=== PATIENT | female | born 1990 | race Caucasian/White ===

== ENCOUNTER 2020-04-04 08:38 | Outpatient (REF) | payer OTHER, SELFPAY ==
[2020-04-04 12:41] LABS: Influenza A PCR NEGATIVE (Negative); Influenza B PCR NEGATIVE (Negative); Resp Syncy Virus RNA Qual PCR NEGATIVE (Negative); SARS COV2 PCR INHOUSE NEGATIVE (Negative)
== END 2020-04-04 08:39 | disposition home or self-care (01) ==
LOC: HO.LAB 08:38
PROVIDERS: Visit Provider Nurse Practitioner Family
DX: R06.89 Other abnormalities of breathing (principal)
CPT/HCPCS: 0241U

== ENCOUNTER 2020-05-10 09:09 | Outpatient (REF) | payer OTHER, SELFPAY | END 2020-05-10 09:10 | disposition home or self-care (01) | LOC: HO.LAB 09:09 | PROVIDERS: Visit Provider Hospitalist | DX: J45.41 Moderate persistent asthma with (acute) exacerbation (principal); Z20.828 Contact with and (suspected) exposure to other viral communicable diseases | CPT/HCPCS: U0003 ==

== ENCOUNTER 2020-05-10 09:16 | Outpatient (REF) | payer OTHER, SELFPAY ==
[2020-05-10 10:28] LABS: MANUAL DIFF FLAG NO
[2020-05-10 10:31] LABS: Basophils Absolute Auto 0.1 X10*3/uL (0.0-0.2); Basophils Percent Auto 0.7 % (0-2); Eosinophils Absolute Auto 0.8 X10*3/uL (0.0-0.4); Eosinophils Percent Auto 8.3 % (0-4); Hematocrit 34.8 % (37-47); Hemoglobin 10.8 g/dl (12.0-16.0); Imm Gran Abs Auto 0.02 X10*3/uL (0.00-0.03); Imm Gran Pct Auto 0.2 % (0.0-0.4); Lymphocytes Absolute Auto 3.3 X10*3/uL (1.2-4.9); Lymphocytes Percent Auto 35.6 % (20-40); Mean Corpuscular Hemoglobin 26.9 pg (27.0-33.0); Mean Corpuscular Volume 86.8 fL (80-98); Monocytes Absolute Auto 0.7 X10*3/uL (0.1-1.2); Monocytes Percent Auto 7.1 % (2-11); Neutrophils Absolute Auto 4.4 X10*3/uL (2.0-8.3); Neutrophils Percent Auto 48.1 % (45-73); Platelet Count 372 X10*3/uL (160-400); Red Blood Count 4.01 X10*6/uL (4.20-5.50); Red Cell Distribution Width 13.6 % (11.0-16.0); White Blood Count 9.2 X10*3/uL (4.8-10.8)
== END 2020-05-10 09:17 | disposition home or self-care (01) ==
LOC: HO.WFDLDS 09:16
PROVIDERS: Visit Provider Hospitalist
DX: J45.41 Moderate persistent asthma with (acute) exacerbation (principal); R79.89 Other specified abnormal findings of blood chemistry
CPT/HCPCS: 36415; 85025

== ENCOUNTER → 2020-06-22 14:07 | Outpatient (BNVA) | payer OTHER, SELFPAY | PROVIDERS: PCP Internal Medicine; Visit Provider Internal Medicine Pulmonary Disease | DX: G47.33 Obstructive sleep apnea (adult) (pediatric) (principal); J45.909 Unspecified asthma, uncomplicated; Z91.09 Other allergy status, other than to drugs and biological substances | CPT/HCPCS: 99202 ==

== ENCOUNTER 2020-08-22 12:53 | Outpatient (REF) | payer OTHER, SELFPAY ==
--- NOTE | 2020-08-22 14:00 | PFT_ITS ---
INDICATION: Asthma. SPIROMETRY: The FEV1 to FVC of 56% with an FEV1 of 1.83 L, which is 56% predicted, and an FVC of 3.29 L, which is 87% predicted. There was a significant response to bronchodilators noted. Maximum voluntary ventilation 61% predicted. LUNG VOLUMES: Total lung capacity 110% predicted with a residual volume of 201% predicted. The patient also has an expiratory reserve volume of 6% predicted. DIFFUSION CAPACITY: DLCO 64% predicted. COMPARISONS: None. INTERPRETATION: There is an obstructive ventilatory defect consistent with moderate to severe COPD. The patient did have a significant response to bronchodilators noted. In addition to that, there is a moderate decrease in maximum voluntary ventilation secondary to likely deconditioning, also worsening dynamic inspiratory capacity. Lung volumes with a trend of hyperinflation and significant air trapping due to the COPD. The patient also has a [id number] diffusion impairment secondary to emphysema and other parenchymal lung conditions should be considered. Clinical correlation warranted. MD CHELI Browne/MODL / [id number]
== END 2020-08-22 12:54 | disposition home or self-care (01) ==
LOC: HO.RESP 12:53
PROVIDERS: PCP Internal Medicine; Visit Provider Internal Medicine Pulmonary Disease
DX: J45.909 Unspecified asthma, uncomplicated (principal)
CPT/HCPCS: 94060; 94727; 94729

== ENCOUNTER 2020-09-05 13:46 | Outpatient (REF) | payer OTHER, SELFPAY ==
[2020-09-05 14:12] LABS: MANUAL DIFF FLAG NO
[2020-09-05 14:21] LABS: Basophils Percent Auto 0.4 % (0-2); Eosinophils Absolute Auto 0.4 X10*3/uL (0.0-0.4); Hematocrit 36.5 % (37-47); Hemoglobin 11.4 g/dl (12.0-16.0); Imm Gran Abs Auto 0.02 X10*3/uL (0.00-0.03); Imm Gran Pct Auto 0.2 % (0.0-0.4); Lymphocytes Percent Auto 32.9 % (20-40); Mean Corpuscular HGB Conc 31.2 g/dl (31.0-35.0); Mean Corpuscular Hemoglobin 25.9 pg (27.0-33.0); Mean Corpuscular Volume 82.8 fL (80-98); Mean Platelet Volume 9.7 fL (9.4-12.3); Monocytes Absolute Auto 0.6 X10*3/uL (0.1-1.2); Monocytes Percent Auto 6.6 % (2-11); Neutrophils Percent Auto 55.9 % (45-73); Platelet Count 329 X10*3/uL (160-400); Red Blood Count 4.41 X10*6/uL (4.20-5.50); Red Cell Distribution Width 15.9 % (11.0-16.0)
== END 2020-09-05 13:47 | disposition home or self-care (01) ==
LOC: HO.LAB 13:46
PROVIDERS: PCP Internal Medicine; Visit Provider Internal Medicine Pulmonary Disease
DX: Z91.09 Other allergy status, other than to drugs and biological substances (principal)
CPT/HCPCS: 36415; 82785; 85025; 86003

== ENCOUNTER → 2020-09-07 13:36 | Outpatient (BNVA) | payer OTHER, SELFPAY | PROVIDERS: PCP Internal Medicine; Visit Provider Internal Medicine Pulmonary Disease | DX: J45.909 Unspecified asthma, uncomplicated (principal); Z91.09 Other allergy status, other than to drugs and biological substances | CPT/HCPCS: 99212 ==

== ENCOUNTER → 2020-09-27 12:58 | Outpatient (BNVA) | payer OTHER, SELFPAY | PROVIDERS: PCP Internal Medicine; Visit Provider Surgery Vascular Surgery | DX: I83.11 Varicose veins of right lower extremity with inflammation (principal) | CPT/HCPCS: 99202 ==

== ENCOUNTER 2020-10-17 12:59 | Outpatient (REF) | payer OTHER, SELFPAY | END 2020-10-17 13:00 | disposition home or self-care (01) | LOC: HO.MDS 12:59 | PROVIDERS: PCP Internal Medicine; Visit Provider Internal Medicine Pulmonary Disease | DX: J45.50 Severe persistent asthma, uncomplicated (principal) | CPT/HCPCS: 96372; J0517 ==

== ENCOUNTER 2020-11-15 11:52 | Outpatient (REF) | payer OTHER, SELFPAY | END 2020-11-15 11:53 | disposition home or self-care (01) | LOC: HO.MDS 11:52 | PROVIDERS: Visit Provider Internal Medicine Pulmonary Disease | DX: J45.50 Severe persistent asthma, uncomplicated (principal) | CPT/HCPCS: 96372; J0517 ==

== ENCOUNTER → 2020-11-19 09:59 | Outpatient (REF) | payer OTHER, SELFPAY ==
--- NOTE | 2020-11-19 10:06 | ECG_ITS ---
Test Reason : CK QT PROLONGATION Blood Pressure : / mmHG Vent. Rate : 067 BPM Atrial Rate : 067 BPM P-R Int : 132 ms QRS Dur : 084 ms QT Int : 464 ms P-R-T Axes : 031 058 028 degrees QTc Int : 490 ms Normal sinus rhythm Prolonged QT Abnormal ECG When compared with ECG of 05-NOV-2017 21:30, QT has lengthened Referred By: Carli Cade Electronically Signed By:Kelvin Davila
== END ==
LOC: HO.CARD 09:59
PROVIDERS: PCP Internal Medicine; Visit Provider Family Medicine
DX: R94.31 Abnormal electrocardiogram [ECG] [EKG] (principal); Z79.891 Long term (current) use of opiate analgesic
CPT/HCPCS: 93005

== ENCOUNTER 2020-12-13 11:32 | Outpatient (REF) | payer OTHER, SELFPAY | END 2020-12-13 11:33 | disposition home or self-care (01) | LOC: HO.MDS 11:32 | PROVIDERS: PCP Internal Medicine; Visit Provider Internal Medicine Pulmonary Disease | DX: J45.50 Severe persistent asthma, uncomplicated (principal) | CPT/HCPCS: 96372; J0517 ==

== ENCOUNTER 2021-02-21 09:51 | Outpatient (REF) | payer OTHER, SELFPAY | END 2021-02-21 09:52 | disposition home or self-care (01) | LOC: HO.MDS 09:51 | PROVIDERS: PCP Internal Medicine; Visit Provider Internal Medicine Pulmonary Disease | DX: J45.50 Severe persistent asthma, uncomplicated (principal) | CPT/HCPCS: 96372; J0517 ==

== ENCOUNTER → 2021-03-14 08:18 | Outpatient (REF) | payer OTHER, SELFPAY ==
--- NOTE | 2021-03-14 08:27 | ECG_ITS ---
Test Reason : methadone qt prolongation Blood Pressure : / mmHG Vent. Rate : 056 BPM Atrial Rate : 056 BPM P-R Int : 128 ms QRS Dur : 088 ms QT Int : 498 ms P-R-T Axes : 043 066 035 degrees QTc Int : 480 ms Sinus bradycardia with sinus arrhythmia Nonspecific T wave abnormality RSR' or QR pattern in V1 suggests right ventricular conduction delay Abnormal ECG When compared with ECG of 19-NOV-2020 10:13, Heart rate has decreased T wave amplitude has decreased in Inferior leads Referred By: Cynthia Doyle Electronically Signed By:SHANTA MCDONALD MD
== END ==
LOC: HO.CARD 08:18
PROVIDERS: Visit Provider Family Medicine
DX: Z79.899 Other long term (current) drug therapy (principal)
CPT/HCPCS: 93005

== ENCOUNTER 2023-01-30 07:21 | Outpatient (AMB) | payer OTHER, SELFPAY ==
--- NOTE | 2023-01-30 07:26 | MHC.PC.OV ---
Vital Signs 01/30/23 07:27 Height 5 ft 4 in Weight 195 lb BMI 33.5 BP 104/68 Blood Pressure Location Lt brachial Position Sitting Pulse 67 Pulse Source Pulse Oximeter Pulse Oximetry (%) 94 Oxygen Delivery Method Room Air Intake Visit Reasons: f/u from urgent care, vomiting, chest pain Allergies aspirin [ASPIRIN] Allergy (Severe, Verified 01/30/23 07:27) ANAPHYLAXIS Tobacco use date assessed: 01/30/23 Dental Screening Dental Screen Date: 01/30/23 Did you have a dental visit in the last 12 months?: Yes Did you have a dental problem in the last 6 months where you did not have access to dental care?: No Was dental information given to patient?: Patient has dentist HPI HPI Comments History of Present Illness Details 32-year-old female past medical history significant for asthma, GERD, with disorder, hypertension, NIYA. Patient unknown when last seen. Patient presents today for follow up from urgent care, however she reports she never went to urgent care.States visits for vomiting since April, Patient was at the time and underwent an in august and the vomitting continued. Patient states went to ER in [place] 1 month ago was given promethazine and was recommended to have a EGD completed. Patient reports she will vomit like 15 times a day from 05:00 to 12:00. Patient states previous on omprezole 20 mg daily for GERD however she stopped taking this because her reflux went away. Denies CP, states feels like rock in epigastric area. Patient does report when she is not vomiting she does have occasional diarrhea. Denies any rectal bleed. Patient states she has had pancreatitis in the past and she is concerned over this. Labs ordered to further evaluate. Patient reports followed by [facility] methadone clinic and states she is on 115 mg daily. Denies any alcohol use admits to smoking marijuana however denies any other drug use. [facility] Medical History Pancreatitis Fractured coccyx Lumbar degenerative disc disease Hypertension GERD (gastroesophageal reflux disease) Tobacco abuse Polysubstance abuse Mood disorder Asthma Surgical History History of section History of wisdom tooth extraction Family History (Updated 01/30/23 @ 07:35 by Khalida Rebolledo CMA) Father DDD (degenerative disc disease) CVD (cardiovascular disease) Mother CVD (cardiovascular disease) Acute pancreatitis Paternal Aunt Ovarian cancer Paternal Grandfather Colostomy in place Acute Crohn's disease Other Mental health disorder Substance use disorder Social History Housing: Apartment Patient Tobacco Use Status: Current everyday Tobacco user Tobacco use type: Cigarette Cigarette Packs Per Day: 0.5 Cigarettes Per Day: 12 Years Smoked: 14 yrs e-Cigarette/Vaping Use: Never Used Second Hand Smoke Exposure: Yes Current occupational status: employed Cognitive needs: No Hearing needs: No Vision needs: No Questionnaire PHQ-9 Over the last 2 weeks, how often have you been bothered by any of the following problems? 1. Little interest or pleasure in doing things: more than half the days 2. Feeling down, depressed, or hopeless: more than half the days 3. Trouble falling or staying asleep, or sleeping too much: nearly every day 4. Feeling tired or having little energy: nearly every day 5. Poor appetite or overeating: nearly every day 6. Feeling bad about yourself - or that you are a failure or have let yourself or your family down: more than half the days 7. Trouble concentrating on things, such as reading the newspaper or watching television: several days 8. Moving or speaking so slowly that other people could have noticed. Or the opposite - being so fidgety or restless that you have been moving around a lot more than usual: not at all 9. Thoughts that you would be better off or of hurting yourself in some way: not at all Total score: 16 Depression Screening Interpretation: Positive Source: Developed by Drs. Blake Serrano, Carli Shipman, Dayne Reilly and colleagues, with an educational kisha from [employer]. Thrive Questionnaire Date Thrive assessed: 01/30/23 I am a: Patient What is your living situation today?: I have a steady place to live Within the past 12 months, did the food you bought not last and you didn't have the money to get more?: Never true Within the past 12 months, did you worry whether your food would run out before you got money to buy more?: Never true Do you have trouble paying for medicines?: No Do you have trouble getting transportation to medical appointments?: No Do you have trouble paying your heating and electricity bill?: No Do you have trouble taking care of your child, family member or friend?: No Do you have trouble with day-to-day activities such as bathing, preparing meals, shopping, managing finances, etc.?: No Are you currently unemployed and looking for a job?: No Are you interested in more education?: No Currently or been in a relationship where the following occur: no concerns reported AUDIT C Alcohol Use Questionnaire (AUDIT-C) 1. How often do you have a drink containing alcohol?: Never 3. How often do you have six or more drinks on one occasion?: Never Total Score: 0 DEEP-7 AMB Questionnaire DEEP-7 Date DEEP - 7 assessed: 01/30/23 Feeling nervous, anxious, or on edge: 2 = More than half the days Not being able to stop or control worryin = Several days Worrying too much about different things: 3 = Nearly every day Trouble relaxin = More than half the days Being so restless that it is hard to sit still: 0 = Not at all Becoming easily annoyed or irritable: 1 = Several days Feeling afraid as if something awful might happen: 0 = Not at all Total DEEP-7 score (0-4 normal; 5-9 mild; 10-14 moderate; 15-21 severe): 9 Source: Developed by Drs. Blake Serrano, Carli Shipman, Dayne Reilly and colleagues, with an educational kisha from [employer]. Review of Systems Const Denies chills, Denies fatigue, Denies fever(s) and Denies poor appetite Eyes Denies no additional complaints ENT Reports Normal hearing present Card Denies chest pain, Denies syncope, Denies rapid heart rate and Denies dyspnea Resp Denies cough and Denies dyspnea GI Reports abdominal pain (epigastric discomfort), Denies melena, Denies hematochezia, Denies change in stool character, Denies constipation, Denies diarrhea, Denies nausea and Denies vomiting Denies urinary frequency, Denies dysuria and Denies urinary urgency Neuro Reports Normal hearing present, Denies confusion and Denies syncope Psych Denies confusion Endo Denies fatigue Physical exam (Primary Care) Vital Signs: Last Vital Signs Pulse 67 01/30/23 07:27 BP 104/68 01/30/23 07:27 Pulse Ox 94 01/30/23 07:27 Oxygen Delivery Method Room Air 01/30/23 07:27 BMI result Body Mass Index 33.5 Tobacco/Smoking Status: Tobacco use Status Tobacco use date assessed 01/30/23 01/30/23 07:38 Patient Tobacco Use Status Current everyday Tobacco 01/30/23 07:38 Tobacco use type Cigarette 01/30/23 07:38 e-Cigarette/Vaping Use Never Used 01/30/23 07:38 PHQ-9: PHQ-9 Score PHQ-9: Total score 16 01/30/23 08:00 Depression Screening Interpretation: Positive Thrive Assessment: Date of Thrive Assessment Date Thrive assessed 01/30/23 01/30/23 07:34 Currently or been in a relationship where the following occur: no concerns reported Const General: No confusion Orientation/consciousness: No confusion HENMT Head: Yes normocephalic and Yes atraumatic Eyes Conjunctivae: conjunctivae normal Chest Chest palpation & inspection: normal inspection of the chest Resp Effort & Inspection: normal respiratory effort Auscultation: clear to auscultation bilaterally, no crackles, no rhonchi and no wheezes Cardio Rate: regular rate Rhythm: regular rhythm Heart sounds: S1 normal heart sound present and S2 normal heart sound present GI Inspection: Yes normal to inspection Palpation (GI): Soft to palpation, nontender and No hepatosplenomegaly present Auscultation: normoactive bowel sounds Neuro General: No confusion Cranial nerves: Yes Normal hearing present Extrem General: No edema Assessment and Plan Assessment & Plan (1) GERD (gastroesophageal reflux disease): Code(s): K21.9 - Gastro-esophageal reflux disease without esophagitis Qualifiers: Esophagitis presence: esophagitis presence not specified Qualified Code(s): K21.9 - Gastro-esophageal reflux disease without esophagitis Plan: Epigastric discomfort and daily vomiting likely related to uncontrolled GERD. Will start patient back on omeprazole 20 mg daily and Zofran 4 mg q.8 hours as needed for vomiting. Referral entered to GI given patient was recommended to get EGD done in the past to further evaluate. (2) Epigastric pain: Code(s): R10.13 - Epigastric pain (3) Vomiting: Code(s): R11.10 - Vomiting, unspecified Plan Follow-up in 3 months for physical exam or sooner if needed. Orders: Orders Complete Blood Count Auto Diff Today Z13.0 - Encounter for screening for diseases of the blood and blood-forming organs and certain disorders involving the immune mechanism Lipase Today R10.13 - Epigastric pain Comprehensive Met. Panel Today R10.13 - Epigastric pain, R11.10 - Vomiting, unspecified Amylase Today R10.13 - Epigastric pain Referrals Gastroenterology Referral K21.9 - Gastro-esophageal reflux disease without esophagitis, R10.13 - Epigastric pain, R11.10 - Vomiting, unspecified Medications: New omeprazole 20 mg PO DAILY 30 caps 1RF K21.9 - Gastro-esophageal reflux disease without esophagitis ondansetron 4 mg PO Q8H PRN 7 tabs 0RF nausea and vomiting R11.10 - Vomiting, unspecified Coding Level of Care Code Est Pt Level 3 (91614) Diagnoses Gastroesophageal reflux disease, unspecified whether esophagitis present K21.9 Esophagitis presence: esophagitis presence not specified Epigastric pain R10.13 Vomiting R11.10
[2023-01-30 07:27] VITALS: BP 104/68; PULSE 67; O2SAT 94; BMI 33.5
== END 2023-01-30 07:57 | disposition home or self-care (01) ==
PROVIDERS: PCP Internal Medicine; Visit Provider Nurse Practitioner Family
DX: K21.9 Gastro-esophageal reflux disease without esophagitis (principal); R10.13 Epigastric pain; R11.10 Vomiting, unspecified
CPT/HCPCS: 99213

== ENCOUNTER 2023-01-30 08:04 | Outpatient (REF) | payer OTHER, SELFPAY ==
[2023-01-30 08:20] LABS: MANUAL DIFF FLAG NO
[2023-01-30 09:09] LABS: Basophils Percent Auto 0.4 % (0-2); Eosinophils Absolute Auto 0.1 X10*3/uL (0.0-0.4); Eosinophils Percent Auto 1.5 % (0-4); Hematocrit 41.6 % (37.0-47.0); Hemoglobin 13.8 g/dl (12.0-16.0); Imm Gran Abs Auto 0.02 X10*3/uL (0.00-0.03); Imm Gran Pct Auto 0.3 % (0.0-0.4); Lymphocytes Absolute Auto 2.7 X10*3/uL (1.2-4.9); Lymphocytes Percent Auto 34.1 % (20-40); Mean Corpuscular HGB Conc 33.2 g/dl (31.0-35.0); Mean Corpuscular Hemoglobin 29.1 pg (27.0-33.0); Mean Corpuscular Volume 87.6 fL (80.0-98.0); Mean Platelet Volume 10.4 fL (9.4-12.3); Monocytes Absolute Auto 0.5 X10*3/uL (0.1-1.2); Monocytes Percent Auto 6.4 % (2-11); Neutrophils Absolute Auto 4.5 x10*3/uL (2.0-8.3); Neutrophils Percent Auto 57.3 % (45-73); Platelet Count 326 X10*3/uL (160-400); Red Blood Count 4.75 X10*6/uL (4.20-5.50); Red Cell Distribution Width 12.9 % (11.0-16.0); White Blood Count 7.8 X10*3/uL (4.8-10.8)
[2023-01-30 10:06] LABS: Alanine Aminotransferase 21 U/L (0-31); Albumin Level 3.8 g/dL (3.5-5.0); Alkaline Phosphatase 64 U/L (39-117); Amylase 33 U/L (28-100); Anion Gap 12 (12-20); Aspartate Amino Transferase 19 U/L (5-31); Bilirubin Total 0.3 mg/dL (0.0-1.0); Blood Urea Nitrogen 10 mg/dL (9-16); Calcium 9.2 mg/dL (8.4-10.2); Carbon Dioxide 28 mmol/L (22-29); Chloride 101 mmol/L (96-108); Estimated Glomerular Filt Rate > 60; Glucose Random 93 mg/dL (60-115); Lipase 17 U/L (8-78); Potassium 3.8 mmol/L (3.3-5.1); Sodium 137 mmol/L (135-145); Total Protein 7.2 g/dL (6.5-8.0)
== END 2023-01-30 08:05 | disposition home or self-care (01) ==
LOC: HO.LAB 08:04
PROVIDERS: PCP Nurse Practitioner Family; Visit Provider Nurse Practitioner Family
DX: R10.13 Epigastric pain (principal); R11.10 Vomiting, unspecified; Z13.0 Encounter for screening for diseases of the blood and blood-forming organs and certain disorders involving the immune mechanism
CPT/HCPCS: 36415; 80053; 82150; 83690; 85025

== ENCOUNTER 2023-02-23 10:28 | Outpatient (REF) | payer OTHER, SELFPAY ==
[2023-02-23 12:09] LABS: Hematocrit 39.7 % (37.0-47.0); Hemoglobin 13.2 g/dl (12.0-16.0); Mean Corpuscular HGB Conc 33.2 g/dl (31.0-35.0); Mean Corpuscular Hemoglobin 29.1 pg (27.0-33.0); Mean Corpuscular Volume 87.4 fL (80.0-98.0); Mean Platelet Volume 10.6 fL (9.4-12.3); Platelet Count 271 X10*3/uL (160-400); Red Blood Count 4.54 X10*6/uL (4.20-5.50); Red Cell Distribution Width 12.7 % (11.0-16.0); White Blood Count 8.9 X10*3/uL (4.8-10.8)
[2023-02-23 13:18] LABS: Alanine Aminotransferase 15 U/L (0-31); Albumin Level 4.1 g/dL (3.5-5.0); Alkaline Phosphatase 67 U/L (39-117); Anion Gap 14 (12-20); Aspartate Amino Transferase 16 U/L (5-31); Bilirubin Total 0.5 mg/dL (0.0-1.0); Blood Urea Nitrogen 6 mg/dL (9-16); Calcium 9.4 mg/dL (8.4-10.2); Carbon Dioxide 25 mmol/L (22-29); Chloride 103 mmol/L (96-108); Estimated Glomerular Filt Rate > 60; Glucose Random 95 mg/dL (60-115); Lipase 65 U/L (8-78); Potassium 3.7 mmol/L (3.3-5.1); Sodium 138 mmol/L (135-145); Total Protein 7.2 g/dL (6.5-8.0)
[2023-02-23 13:23] LABS: UPreg QC Valid YES; Urine Pregnancy NEGATIVE (NEGATIVE)
[2023-02-24 07:32] LABS: HBS Num1 0.32 mIU/mL (0-7.99); HBc Num1 0.06 S/CO (0.00-0.79); Hepatitis B Core Antibody Nonreactive (Nonreactive); ~HepC Num1 0.11 S/CO (0.00-0.79); ~Hepatitis B Surface Antibody NONREACTIVE (Nonreactive); ~Hepatitis C Antibody Nonreactive (Nonreactive)
[2023-02-24 07:33] LABS: Hepatitis A Antibody IgG Nonreactive (Nonreactive); ~Hepatitis A Antibody IgG 0.27 S/CO (0.00-0.99)
== END 2023-02-23 10:29 | disposition home or self-care (01) ==
LOC: HO.LAB 10:28
PROVIDERS: PCP Nurse Practitioner Family; Visit Provider Internal Medicine
DX: R11.10 Vomiting, unspecified (principal); F19.91 Other psychoactive substance use, unspecified, in remission; R10.10 Upper abdominal pain, unspecified; R10.13 Epigastric pain; K21.9 Gastro-esophageal reflux disease without esophagitis; R63.4 Abnormal weight loss; Z87.19 Personal history of other diseases of the digestive system
CPT/HCPCS: 36415; 80053; 81025; 83690; 85027; 86704; 86706; 86708; 86803

== ENCOUNTER 2023-02-23 10:28 | Outpatient (AMB) | payer OTHER, SELFPAY ==
--- NOTE | 2023-02-23 10:34 | MHC.OFFVIS ---
Intake Vital Signs 02/23/23 10:36 Height 5 ft 4 in Weight 187 lb 6.287 oz BMI 32.2 Blood Pressure Location Lt brachial Position Sitting Intake Visit Reasons: Gastroesophageal reflux disease (GERD) Intake Note: Jasmine presents in the office as a new patient for GERD. CC: She states that she is not sure if it is GERD and she feels that it is more than just GERD. She got - throwing up began. She had to get an because she was having severe vomiting. She gets severe epigastric pains. After she is still throwing up every single day. She states that some day she is in bed all day long. Once in a while she will have both constipation and diarrhea. Mostly diarrhea will happen in the morning. Allergies aspirin [ASPIRIN] Allergy (Severe, Verified 02/23/23 10:36) ANAPHYLAXIS HPI HPI Comments History of Present Illness Details This is a 32y.o F with PMH of who is here for severe N/V. Pt reports having severe abd discomfort with nausea and vomiting that started after she got in Apr 2022. Was to the extent of debilitating and limiting her to bed. Underwent in August 2022 but continues to have the sx. Currently, describes 2-3 episodes of vomiting right after waking up. Notices it more after she has had a late dinner. Assoc with pain in epigastrium which radiates to her back. Reminiscent of pancreatitis pain that occured almost 3-4 years ago at [facility]. She does tell me that she was told about GB inflammation at dewayne time but does not recall being recommended a cholecystectomy or if she was seen by a surgeon. Has also been noticing decrease appetite, gets full easily. Has lost considerable weight from that since Apr. Down multiple sizes of clothes. 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 Smokes 0.5 PPD tobacco, as well as marijuana which she started AFTER she developed N,V in Apr. 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 No fam hx of stomach ca or esophageal ca. Does not take NSAIDs on a daily basis. [facility] Medical History Pancreatitis Fractured coccyx Lumbar degenerative disc disease Hypertension GERD (gastroesophageal reflux disease) Tobacco abuse Polysubstance abuse Mood disorder Asthma Surgical History History of section History of wisdom tooth extraction Family History (Updated 01/30/23 @ 07:35 by Khalida Rebolledo [facility]) Father DDD (degenerative disc disease) CVD (cardiovascular disease) Mother CVD (cardiovascular disease) Acute pancreatitis Paternal Aunt Ovarian cancer Paternal Grandfather Colostomy in place Acute Crohn's disease Other Mental health disorder Substance use disorder Social History (Reviewed 09/27/20 @ 13:06 by Cece Dennis COUNTS INCLUDE 234 BEDS AT THE [facility]) Housing: Apartment Patient Tobacco Use Status: Current everyday Tobacco user Tobacco use type: Cigarette Cigarette Packs Per Day: 0.5 Cigarettes Per Day: 12 Years Smoked: 14 yrs e-Cigarette/Vaping Use: Never Used Second Hand Smoke Exposure: Yes Current occupational status: employed Cognitive needs: No Hearing needs: No Vision needs: No Review of Systems Const All systems reviewed & are unremarkable except as noted in HPI and below Physical Exam Vital Signs: BMI result Body Mass Index 32.2 Gen appear: NAD HEENT: nonicteric, no cervical lymphadenopathy Chest: CTA CVS: Regular S1/S2 Abd: soft, nontender, nondistended, bowel sounds + Ext: no peripheral edema Neuro: A/Ox3, noted to move all extremities spontaneously Psych: interacting appropriately Assessment & Plan Assessment & Plan (1) Epigastric pain: Code(s): R10.13 - Epigastric pain (2) Vomiting: Code(s): R11.10 - Vomiting, unspecified (3) History of pancreatitis: Code(s): Z87.19 - Personal history of other diseases of the digestive system (4) Unintentional weight loss: Code(s): R63.4 - Abnormal weight loss Plan Given her report of pain reminiscent of pancreatitis, early satiety and weight loss, have ordered urgent CT to r/o symptomatic peripancreatic cyst. Other Ddx include chronic panc, PUD, GOO. We will also get a test. Plan: - Labs as below - CT Abd/pel with contrast - Urgent EGD in the next few weeks - Pt encouraged to cont omeprazole 20 (Rxed by PCP) but to take it in AM 30-40 mins before breakfast - Follow up after EGD Orders: Orders CT abdomen pelvis w IV con Today R10.13 - Epigastric pain, R11.10 - Vomiting, unspecified Complete Blood Count no Diff Today R11.10 - Vomiting, unspecified Lipase Today R11.10 - Vomiting, unspecified Hepatitis A IgG Today F19.91 - Other psychoactive substance use, unspecified, in remission Hepatitis C Antibody Today F19.91 - Other psychoactive substance use, unspecified, in remission Comprehensive Met. Panel Today R11.10 - Vomiting, unspecified Hepatitis B Core Antibody Today F19.91 - Other psychoactive substance use, unspecified, in remission Hepatitis B Surface Antibody Today F19.91 - Other psychoactive substance use, unspecified, in remission Ur Preg Test Today R11.10 - Vomiting, unspecified Coding Level of Care Code New Pt Level 4 (74655) Diagnoses Epigastric pain R10.13 Vomiting R11.10 History of pancreatitis Z87.19 Unintentional weight loss R63.4
[2023-02-23 10:36] VITALS: BMI 32.2
== END 2023-02-23 11:14 | disposition home or self-care (01) ==
PROVIDERS: PCP Nurse Practitioner Family; Visit Provider Internal Medicine
DX: R10.13 Epigastric pain (principal); R11.10 Vomiting, unspecified; Z87.19 Personal history of other diseases of the digestive system; R63.4 Abnormal weight loss
CPT/HCPCS: 99204

== ENCOUNTER 2023-03-03 09:14 | Outpatient (REF) | payer OTHER, SELFPAY ==
--- NOTE | ~2023-03-03 | CT_ITS ---
EXAMINATION: CT ABDOMEN AND PELVIS WITH CONTRAST CLINICAL INFORMATION: Vomiting. COMPARISON: Ultrasound abdomen 02/27/2016. TECHNIQUE: Multidetector volumetric images were obtained from the superior aspect of the liver through the pubic symphysis following administration 85 mL of Omnipaque 350 intravenous contrast. Sagittal and coronal reformatted images were obtained on the technologist's workstation. Oral contrast: No This CT examination was performed using dose optimization techniques as appropriate, variously including the following: *Automated exposure control *Adjustment of mA and/or kV according to patient size (this includes techniques or standardized protocols for targeted exams where dose is matched to indication/reason for exam; i.e. extremities or head) *Use of iterative reconstruction technique DLP: 503 mGy-cm FINDINGS: LUNG BASES: The visualized lung bases are unremarkable. LIVER, GALLBLADDER, AND BILIARY TREE: The liver is normal in size, shape, and attenuation. No focal hepatic lesion or biliary ductal dilatation is present. The gallbladder is unremarkable with no evidence of radiopaque gallstones, gallbladder wall thickening, or obvious pericholecystic inflammatory changes. PANCREAS: Unremarkable. SPLEEN: Unremarkable. ADRENAL GLANDS: Unremarkable. KIDNEYS AND URETERS: The kidneys are normal in size, shape, and attenuation. No hydronephrosis, hydroureter, or calculi seen. No perinephric stranding. BLADDER: Unremarkable. GASTROINTESTINAL TRACT: There is moderate scattered stool a in colon without distention. The small bowel loops are normal caliber. Appendix is not visualized.. There is no free fluid or free air. ABDOMINAL WALL: No significant hernia is appreciated. LYMPH NODES: Normal. VASCULAR: Unremarkable. PELVIC VISCERA: No free air or free fluid seen. The uterus is anteverted and unremarkable. No adnexal mass seen. OSSEOUS STRUCTURES: Unremarkable. CT/CT abdomen pelvis w IV con IMPRESSION: Mild constipation otherwise no acute process seen. Fleischner guidelines were followed.
[2023-03-03] MEDS: Barium Sulfate Oral (Vanilla) 450 ML ORAL.SUSP PO (10:07)
[2023-03-03] MEDS: iohexoL 350 MG/ML 100 ML INFUS..BTL IV (10:09)
== END 2023-03-03 09:15 | disposition home or self-care (01) ==
LOC: HO.CT 09:14
PROVIDERS: PCP Internal Medicine; Visit Provider Internal Medicine
DX: R10.13 Epigastric pain (principal); R11.10 Vomiting, unspecified
CPT/HCPCS: 74177; Q9967

== ENCOUNTER 2023-04-27 11:26 | Day surgery (SDC) | payer OTHER, SELFPAY ==
[2023-04-23 12:16] VITALS: BMI 33.5
--- NOTE | 2023-04-24 10:19 | P.CONAN_ITS ---
Documented by User: Rylie Aguero NP 04/24/23 10:21 HPI - Anesthesia Eval Consult details Narrative: 32yo F for Upper Endoscopy Methadone daily PMFSH Active Problems Active Problems: All Active Problems (Updated 02/23/23 @ 11:21 by Kinsey Grande MD) Unintentional weight loss (Acute) History of pancreatitis (Acute) History of drug use (Acute) Vomiting (Acute) Epigastric pain (Acute) Varicose veins of right lower extremity with inflammation (Acute) Cellulitis (Acute) Environmental allergies (Acute) NIYA (obstructive sleep apnea) (Acute) Cough (Acute) Difficulty breathing (Acute) Hypertension (Acute) GERD (gastroesophageal reflux disease) (Acute) Mood disorder (Acute) Asthma (Acute) Past Medical History Medical History Pancreatitis Fractured coccyx Lumbar degenerative disc disease Hypertension GERD (gastroesophageal reflux disease) Tobacco abuse Polysubstance abuse Mood disorder Asthma Family History Family History Father DDD (degenerative disc disease) CVD (cardiovascular disease) Mother CVD (cardiovascular disease) Acute pancreatitis Paternal Aunt Ovarian cancer Paternal Grandfather Colostomy in place Acute Crohn's disease Other Mental health disorder Substance use disorder Surgical History Surgical History History of section History of wisdom tooth extraction Social History Social History Housing: Apartment Patient Tobacco Use Status: Current everyday Tobacco user Tobacco use type: Cigarette Cigarette Packs Per Day: 0.5 Cigarettes Per Day: 12 Years Smoked: 14 yrs e-Cigarette/Vaping Use: Never Used Second Hand Smoke Exposure: Yes Advance Directives: No Advance Directives Information Provided: Yes Current occupational status: employed Cognitive needs: No Hearing needs: No Vision needs: No Meds Allergies Allergy/AdvReac Type Severity Reaction Status Date / Time aspirin [ASPIRIN] Allergy Severe ANAPHYLAXIS Verified 02/23/23 10:36 Home Medications Medication Instructions Recorded Confirmed Last Taken Type methadone 10 mg/5 mL oral solution 115 mg PO DAILY 02/23/23 Unknown History Exam Height,Weight and Vital Signs: Height 5 ft 4 in Weight 88.451 kg Pertinent Lab Results Pertinent Lab Results: Laboratory Tests 02/23/23 11:37 WBC 8.9 Hgb 13.2 Hct 39.7 Plt Count 271 Sodium 138 Potassium 3.7 Chloride 103 Carbon Dioxide 25 BUN 6 L Creatinine 0.73 Assessment and Plan Assessment Anesthesia Assessment: Chart Reviewed Documented by User: Saima Pina MD 04/27/23 12:36 [facility] Past Medical History Medical History Pancreatitis Fractured coccyx Lumbar degenerative disc disease Hypertension GERD (gastroesophageal reflux disease) Tobacco abuse Polysubstance abuse Mood disorder Asthma Family History Family History Father DDD (degenerative disc disease) CVD (cardiovascular disease) Mother CVD (cardiovascular disease) Acute pancreatitis Paternal Aunt Ovarian cancer Paternal Grandfather Colostomy in place Acute Crohn's disease Other Mental health disorder Substance use disorder Family history of problems with anesthesia: No Surgical History Surgical History History of section History of wisdom tooth extraction History of Problems with Anesthesia: No Social History Social History Housing: Apartment Patient Tobacco Use Status: Current everyday Tobacco user Tobacco use type: Cigarette Cigarette Packs Per Day: 0.5 Cigarettes Per Day: 12 Years Smoked: 14 yrs e-Cigarette/Vaping Use: Never Used Second Hand Smoke Exposure: Yes Advance Directives: No Advance Directives Information Provided: Yes Current occupational status: employed Cognitive needs: No Hearing needs: No Vision needs: No Meds Allergies Allergy/AdvReac Type Severity Reaction Status Date / Time aspirin [ASPIRIN] Allergy Severe ANAPHYLAXIS Verified 02/23/23 10:36 Home Medications Medication Instructions Recorded Confirmed Last Taken Type methadone 10 mg/5 mL oral solution 115 mg PO DAILY 02/23/23 Unknown History Exam Airway Mallampati Class: II TM Dist: >3cm Neck ROM: Full Partial: Upper (multiple missing teeth upper ) Heart: rrr Lungs: cta Assessment and Plan Assessment Anesthesia Assessment: Anesthesia Plan Discussed Final Anesthetic Review Family History of Problems with Anesthesia: No History of Problems with Anesthesia: No NPO: No ASA Class: III (mood disorder) Final Preanesthetic Review: No Changes in Pt Med Stat, Meds/Allgs Chart Reviewed, Consent Obtained/Reviewed and Anes Risks/Benef Reviewed Patient Risk: Intermediate Procedure Risk: Low Anesthetic Plan Anesthetic Plan: MAC: Disposition: Standard PACU
[2023-04-27 12:30] LABS: UPreg QC Valid YES; Urine Pregnancy NEGATIVE (NEGATIVE)
[2023-04-27 12:38] VITALS: BP 108/43; PULSE 54; RESP 16; TEMP 36.5; O2SAT 96
--- NOTE | 2023-04-27 12:57 | HO.ANESPROP2 ---
[facility] Active Problems Active Problems: All Active Problems (Updated 02/23/23 @ 11:21 by Kinsey Grande MD) Unintentional weight loss (Acute) History of pancreatitis (Acute) History of drug use (Acute) Vomiting (Acute) Epigastric pain (Acute) Varicose veins of right lower extremity with inflammation (Acute) Cellulitis (Acute) Environmental allergies (Acute) NIYA (obstructive sleep apnea) (Acute) Cough (Acute) Difficulty breathing (Acute) Hypertension (Acute) GERD (gastroesophageal reflux disease) (Acute) Mood disorder (Acute) Asthma (Acute) Past Medical History Medical History Pancreatitis Fractured coccyx Lumbar degenerative disc disease Hypertension GERD (gastroesophageal reflux disease) Tobacco abuse Polysubstance abuse Mood disorder Asthma Family History Family History Father DDD (degenerative disc disease) CVD (cardiovascular disease) Mother CVD (cardiovascular disease) Acute pancreatitis Paternal Aunt Ovarian cancer Paternal Grandfather Colostomy in place Acute Crohn's disease Other Mental health disorder Substance use disorder Family history of problems with anesthesia: No Surgical History Surgical History History of section History of wisdom tooth extraction History of Problems with Anesthesia: No Social History Social History Housing: Apartment Patient Tobacco Use Status: Current everyday Tobacco user Tobacco use type: Cigarette Cigarette Packs Per Day: 0.5 Cigarettes Per Day: 12 Years Smoked: 14 yrs e-Cigarette/Vaping Use: Never Used Second Hand Smoke Exposure: Yes Advance Directives: No Advance Directives Information Provided: Yes Current occupational status: employed Cognitive needs: No Hearing needs: No Vision needs: No Meds Allergies Allergy/AdvReac Type Severity Reaction Status Date / Time aspirin [ASPIRIN] Allergy Severe ANAPHYLAXIS Verified 02/23/23 10:36 Active Medications: Current Medications Albuterol Sulfate (Albuterol Sulfate (0.083%) 2.5 Mg/3 Ml Vial.Neb) 2.5 mg INHALE ONCE PRN PRN Reason: Shortness of Breath/Wheezing Lactated Ringer's (Lr) 1,000 mls @ 100 mls/hr IVCONT .Q10H [facility] Home Medications Medication Instructions Recorded Confirmed Last Taken Type methadone 10 mg/5 mL oral solution 115 mg PO DAILY 02/23/23 Unknown History Exam Height,Weight and Vital Signs: Height 5 ft 4 in Weight 88.451 kg Last Vital Signs Temp 97.7 F 04/27/23 12:38 Pulse 54 04/27/23 12:38 Resp 16 04/27/23 12:38 BP 108/43 L 04/27/23 12:38 Pulse Ox 96 04/27/23 12:38 O2 Del Method Room Air 04/27/23 12:38 Pertinent Lab Results Pertinent Lab Results: Laboratory Tests 04/27/23 12:21 Urine Test NEGATIVE Airway Mallampati Class: II (multiple missing) TM Dist: >3cm Neck ROM: Full Heart: rrr Lungs: cta Assessment and Plan Assessment Anesthesia Assessment: Anesthesia Plan Discussed and Chart Reviewed Final Anesthetic Review Family History of Problems with Anesthesia: No History of Problems with Anesthesia: No NPO: Yes ASA Class: II Final Preanesthetic Review: No Changes in Pt Med Stat, Meds/Allgs Chart Reviewed and Consent Obtained/Reviewed Patient Risk: Intermediate Procedure Risk: Intermediate Anesthetic Plan Anesthetic Plan: MAC: Disposition: Standard PACU
--- NOTE | 2023-04-27 12:59 | MHC.SHP ---
Pre-Procedural Eval Section A Date of Service: 04/27/23 The patient is an INPATIENT: No The History & Physical has been completed within 30 days and I have reviewed it.: No Section B Chief Complaint: Epigastric pain, n, v, early satiety and wt loss Relevant Family History (Specify if Yes): No Relevant Social History: Tobacco Use Present Medications: see Short Stay Collaborative assessment Medical History: Significant History (Pancreatitis Fractured coccyx Lumbar degenerative disc disease Hypertension GERD (gastroesophageal reflux disease) Tobacco abuse Polysubstance abuse Mood disorder Asthma) History of Previous Operations: Relevant previous surgery/procedure and date(s) (History of section History of wisdom tooth extraction) Allergies: Allergies Allergy/AdvReac Type Severity Reaction Status Date / Time aspirin [ASPIRIN] Allergy Severe ANAPHYLAXIS Verified 02/23/23 10:36 Review of Systems Sugical H&P ROS: Negative: Constitution, Cardiovascular, Respiratory and Gastrointestinal Exam Surgical H&P Exam: Normal: Heart, Normal: Lungs, Normal: Extremities and Normal: Abdomen Plan Diagnosis/Plan: Unchanged I have reviewed the history and physical and performed a pertinent physical examination on my patient. No changes have occurred unless specified. Time Spent With Patient Time: Total time managing care of this patient today ____ minutes.
--- NOTE | 2023-04-27 14:19 | W.PM.OPN ---
Operative Note Operative Note Date of Service: 04/27/23 Narrative: FLEXIBLE TRANSORAL UPPER GASTROINTESTINAL ENDOSCOPY WITH BIOPSIES Pre-op diagnosis: Upper abdominal pain, nausea and vomiting Post-op diagnosis: Normal EGD Endoscopist:? Mara Sparks MD Anesthesia:?MAC Consent: Indications for the procedure and potential complications of bleeding, perforation, reaction to medications and missed diagnosis were discussed with the patient and informed consent was obtained. Instrument: Olympus GIF H 190 mid size upper endoscope Monitoring: Vital signs and clinical assessment, continuous EKG monitoring, Pulse oximetry, Carbon Dioxide monitoring and blood pressure monitoring were done throughout the procedure. Procedure: The patient was placed in the left lateral decubitis position and pre-procedure medications were administered and a bite block was placed. The endoscope was inserted into the mouth and advanced under direct vision to the third part of duodenum. A careful inspection was made as the upper endoscope was withdrawn including a retroflexed examination of the proximal stomach; Findings and interventions are described below. Findings: Larynx: Normal Esophagus: GE junction at 36 cms. No esophagitis or Dean's. Stomach: Normal gastric mucosa. Biopsies were obtained. Grade 1 flap valve on retroflexed examination of the cardia. Duodenum: Normal bulb and descending duodenum. Biopsies were obtained from 3rd part of the duodenum to check for celiac sprue Intervention: Biopsies as noted above Impression and Post Procedure Diagnosis: Endoscopy Findings: Normal EGD Plan: Await pathology results Patient has an appointment on 06/04/23 in the GI Clinic with Mara Sparks M.D.. Above findings were reviewed with the patient. Pt noted improvement in abdominal pain, nausea and vomiting
[2023-04-27 14:20] VITALS: BP 107/46; PULSE 58; RESP 16; TEMP 36.7; O2SAT 93
[2023-04-27 14:35] VITALS: BP 102/47; PULSE 52; RESP 16; O2SAT 93
[2023-04-27 14:50] VITALS: BP 108/51; PULSE 68; RESP 16; TEMP 37; O2SAT 98
== END 2023-04-27 15:11 | disposition home or self-care (01) ==
PROVIDERS: Nurse Practitioner; PCP Internal Medicine; Visit Provider Internal Medicine Gastroenterology
PROC: 0DJ08ZZ Inspection of Upper Intestinal Tract, Via Natural or Artificial Opening Endoscopic (ICD-10-PCS; CPT 43235; principal; 2023-04-27 12:50)
DX: K21.9 Gastro-esophageal reflux disease without esophagitis (principal); R10.13 Epigastric pain; R11.10 Vomiting, unspecified; Z87.19 Personal history of other diseases of the digestive system; I10 Essential (primary) hypertension; J45.909 Unspecified asthma, uncomplicated; G47.33 Obstructive sleep apnea (adult) (pediatric); F19.10 Other psychoactive substance abuse, uncomplicated; R63.4 Abnormal weight loss; Z68.32 Body mass index [BMI] 32.0-32.9, adult; F17.210 Nicotine dependence, cigarettes, uncomplicated
CPT/HCPCS: 43239; 81025; 88305; 88342; J2704

== ENCOUNTER → 2023-04-27 11:26 | Outpatient (BNV) | payer OTHER, SELFPAY | PROVIDERS: PCP Internal Medicine; Visit Provider Internal Medicine Gastroenterology | DX: R11.2 Nausea with vomiting, unspecified (principal); R10.10 Upper abdominal pain, unspecified | CPT/HCPCS: 43239 ==

== ENCOUNTER 2023-05-07 14:48 | Outpatient (AMB) | payer OTHER, SELFPAY ==
[2023-05-07 14:55] VITALS: BP 140/80; PULSE 80; O2SAT 94; BMI 30.9
--- NOTE | 2023-05-07 14:55 | A.OFFPC_ITS ---
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: No Accompanied by: Self / Same As Patient Allergies aspirin [ASPIRIN] Allergy (Severe, Verified 05/07/23 14:59) ANAPHYLAXIS Medication List - Last Reconciled 05/07/23 by Jeanne Nesbitt MD albuterol sulfate 90 mcg/actuation (ProAir HFA) 2 puffs PO Q4-6H PRN fluticasone propion-salmeterol 115-21 mcg/actuation (Advair HFA) 2 puffs inhalation BID 30 days ipratropium-albuterol 0.5 mg-3 mg(2.5 mg base)/3 mL 3 mL inhalation Q4-6H PRN 30 days methadone 115 mg PO DAILY omeprazole 20 mg PO DAILY ondansetron 4 mg PO Q8H PRN Tobacco use date assessed: 01/30/23 Dental Screening Dental Screen Date: 05/07/23 Did you have a dental visit in the last 12 months?: No Did you have a dental problem in the last 6 months where you did not have access to dental care?: No Was dental information given to patient?: Patient has dentist HPI PE HPI Details 32-year-old obese female with GERD asthm a generalized anxiety disorder obstructive sleep apnea hypertension last seen in January 2023. Patient is here for physical exam. Patient had a recent EGD under Dr. Sparks 04/28/2023 biopsy done showing moderate chronic inactive inflammation no H pylori. Abdominal CT scan done showing mild constipation. Patient also has seen the vascular surgeon for peripheral vascular disease had some infections in 2020. complains of low back pain was seeing audio visual specialist Zhen Askew and was advised PT [facility] Medical History (Updated 05/07/23 @ 15:38 by Jeanne Nesbitt MD) Unintentional weight loss History of pancreatitis Cellulitis NIYA (obstructive sleep apnea) Cough Difficulty breathing Pancreatitis Fractured coccyx Lumbar degenerative disc disease Hypertension GERD (gastroesophageal reflux disease) Tobacco abuse Polysubstance abuse Mood disorder Asthma Surgical History History of section History of wisdom tooth extraction Family History Father DDD (degenerative disc disease) CVD (cardiovascular disease) Mother CVD (cardiovascular disease) Acute pancreatitis Paternal Aunt Ovarian cancer Paternal Grandfather Colostomy in place Acute Crohn's disease Other Mental health disorder Substance use disorder Social History (Updated 05/07/23 @ 15:27 by Jeanne Nesbitt MD) Housing: Apartment Alcohol intake: never Patient Tobacco Use Status: Current everyday Tobacco user Tobacco use type: Cigarette Cigarette Packs Per Day: 0.5 Cigarettes Per Day: 12 Years Smoked: 14 yrs , 1/2 pack a day (04/2023) e-Cigarette/Vaping Use: Never Used Second Hand Smoke Exposure: Yes Current occupational status: employed Cognitive needs: No Hearing needs: No Vision needs: No Questionnaire Thrive Questionnaire Date Thrive assessed: 01/30/23 DEEP-7 AMB Questionnaire DEEP-7 Date DEEP - 7 assessed: 01/30/23 Source: Developed by Drs. Blake Serrano, Carli Shipman, Dayne Reilly and colleagues, with an educational kisha from [employer]. Review of Systems Const Denies poor appetite and Denies weakness Eyes Denies no additional complaints ENT Reports Normal hearing present, Denies dizziness, Denies nasal congestion, Denies tinnitus and Denies sore throat Card Denies chest pain, Denies syncope, Denies rapid heart rate and Denies dyspnea Resp Denies cough and Denies dyspnea GI Denies change in stool character, Reports constipation, Denies diarrhea, Denies nausea and Denies vomiting Denies urinary frequency, Denies difficulty voiding and Denies dysuria Neuro Reports Normal hearing present, Denies confusion, Denies dizziness, Denies syncope and Denies weakness Psych Denies confusion Physical exam (Primary Care) Vital Signs: Last Vital Signs Pulse 80 05/07/23 14:55 BP 130/70 05/07/23 15:20 Pulse Ox 94 05/07/23 14:55 Oxygen Delivery Method Room Air 05/07/23 14:55 BMI result Body Mass Index 30.9 Tobacco/Smoking Status: Tobacco use Status Tobacco use date assessed 01/30/23 05/07/23 15:02 Patient Tobacco Use Status Current everyday Tobacco 05/07/23 15:27 Tobacco use type Cigarette 05/07/23 15:27 e-Cigarette/Vaping Use Never Used 05/07/23 15:27 Thrive Assessment: Date of Thrive Assessment Date Thrive assessed 01/30/23 05/07/23 15:02 Const General: No confusion Orientation/consciousness: No confusion HENMT Head: Yes normocephalic Ears: external ears normal and TM's normal bilaterally Face and sinus: Yes normal facial exam Mouth: moist mucous membranes Throat: Yes tonsils normal Eyes Conjunctivae: conjunctivae normal Pupils: Equal, round and reactive pupils present and Pupil accommodation reflex normal Direct Ophthalmoscopy: normal light reflex Neck Neck: No lymphadenopathy Thyroid: Thyroid normal Chest Chest palpation & inspection: normal inspection of the chest Resp Effort & Inspection: normal respiratory effort and no audible wheezes Auscultation: clear to auscultation bilaterally, no crackles, no wheezes and lung sounds not diminished Cardio Rate: regular rate Rhythm: regular rhythm Peripheral pulses: radial pulses present and dorsalis pedis present GI Palpation (GI): no masses Auscultation: normal bowel sounds and normoactive bowel sounds Rectal Exam - Female: deferred Skin General skin exam: no rashes or lesions noted Rashes: no rashes Neuro General: No confusion Cranial nerves: Yes Equal, round and reactive pupils present and Yes Normal hearing present Cognition (Neuro): normal cognition Gait exam (Neuro): Normal gait present Motor exam (neuro): 5/5 motor strength present throughout Deep tendon reflexes (DTR's): Right brachioradialis reflex intensity grade: 2+, Left brachioradialis reflex intensity grade: 2+, Right patellar reflex intensity grade: 2+ and Left patellar reflex intensity grade: 2+ Extrem General: No edema Office Procedures Flu Questionnaire Does the patient have a severe egg allergy?: No Does the patient have severe life threatening allergies?: No Does the patient have a fever or illness today?: No Has the patient ever had Guillain-Lynch Syndrome?: No Has the patient ever had any past reaction to a flu shot?: No Immunizations flu vacc [id number] 6mos up(PF) 60 mcg(15 mcgx4)/0.5 mL IM syringe Performing Provider: Jeanne Nesbitt MD Performing Location: [facility] Administered by: AVELINO Valladares on 05/07/23 16:06 Dose Route Admin Location Dispensed Lot Number Expiration Date NDC Assembly Supervisor 0.5 mL IM Left Deltoid 0.5 mL [id number] 11/08/23 45375-130-40 [employer] VIS Given Date VIS Provided VIS Publication Date 05/07/23 Single Vaccine 20 Eligibility Eligibility Date Funding Source Not [facility] Eligible 05/07/23 Private Assessment and Plan Assessment & Plan (1) Annual physical exam: Code(s): Z00.00 - Encounter for general adult medical examination without abnormal findings (2) Hypertension: Comment: BP normal 04/2023 Code(s): I10 - Essential (primary) hypertension (3) GERD (gastroesophageal reflux disease): Code(s): K21.9 - Gastro-esophageal reflux disease without esophagitis Qualifiers: Esophagitis presence: esophagitis presence not specified Qualified Code(s): K21.9 - Gastro-esophageal reflux disease without esophagitis (4) Asthma: Code(s): J45.909 - Unspecified asthma, uncomplicated Plan: Continue with the inhalers and nebulizers. STOP smoking!!!! (5) NIYA (obstructive sleep apnea): Comment: no CPAP, work up never done Code(s): G47.33 - Obstructive sleep apnea (adult) (pediatric) Plan: no CPAP, sleepy and tired all the time, sleep on TV, takes nap,driving , occ sleep on long trip (6) History of drug use: Code(s): F19.91 - Other psychoactive substance use, unspecified, in remission Plan: Presently on methadone (7) Low back pain: Code(s): M54.50 - Low back pain, unspecified Plan: xray requested (8) Hypersomnia: Code(s): G47.10 - Hypersomnia, unspecified Plan: sleep study requested Orders: Orders XR lumbar spine 2-3V Today M54.50 - Low back pain, unspecified PT Evaluation and Treatment Today M54.50 - Low back pain, unspecified RT home sleep study Today G47.10 - Hypersomnia, unspecified Thyroid Stimulating Hormone Today G47.10 - Hypersomnia, unspecified Comprehensive Met. Panel Today G47.10 - Hypersomnia, unspecified Free T4 (Free Thyroxine) Today G47.10 - Hypersomnia, unspecified Complete Blood Count Auto Diff Today G47.10 - Hypersomnia, unspecified Vitamin B12 and Folate Today G47.10 - Hypersomnia, unspecified Lipid Panel Today E78.00 - Pure hypercholesterolemia, unspecified, G47.10 - Hypersomnia, unspecified UA w Microscopic Today G47.10 - Hypersomnia, unspecified Influenza [id number] Immunization Today Z23 - Encounter for immunization Medications: Refilled omeprazole 20 mg PO DAILY 90 caps 1RF K21.9 - Gastro-esophageal reflux disease without esophagitis ondansetron 4 mg PO Q8H PRN 7 tabs 0RF nausea and vomiting R11.10 - Vomiting, unspecified Coding Level of Care Code Est Pt Prev Care 18-39y(64020) Diagnoses Annual physical exam Z00.00 Hypertension I10 Gastroesophageal reflux disease, unspecified whether esophagitis present K21.9 Esophagitis presence: esophagitis presence not specified Asthma J45.909 NIYA (obstructive sleep apnea) G47.33 History of drug use F19.91 Low back pain M54.50 Hypersomnia G47.10
[2023-05-07 15:20] VITALS: BP 130/70
== END 2023-05-07 15:52 | disposition home or self-care (01) ==
PROVIDERS: PCP Internal Medicine; Visit Provider Internal Medicine
DX: Z00.00 Encounter for general adult medical examination without abnormal findings (principal); I10 Essential (primary) hypertension; K21.9 Gastro-esophageal reflux disease without esophagitis; Z23 Encounter for immunization; J45.909 Unspecified asthma, uncomplicated; G47.33 Obstructive sleep apnea (adult) (pediatric); F19.91 Other psychoactive substance use, unspecified, in remission; M54.50 Low back pain, unspecified; G47.10 Hypersomnia, unspecified
CPT/HCPCS: 90471; 90686; 99395

== ENCOUNTER 2023-05-21 10:32 | Outpatient (REF) | payer OTHER, SELFPAY ==
--- NOTE | ~2023-05-21 | XR_ITS ---
EXAMINATION: XR LUMBOSACRAL SPINE CLINICAL INFORMATION: Low back pain. COMPARISON: CT abdomen/pelvis 03/03/2023. TECHNIQUE: Three views of the lumbosacral spine. FINDINGS: Stable trace retrolisthesis of L5 on S1. No evidence of acute compression deformity or traumatic subluxation. Unchanged mild intervertebral disc height loss and facet arthropathy at L5-S1. Symmetric SI joints. No significant paraspinal soft tissue abnormality. XR/XR lumbar spine 2-3V IMPRESSION: 1. No acute compression deformity or traumatic subluxation. 2. Stable trace retrolisthesis of L5 on S1. 3. Mild lumbar spondylosis at L5-S1.
[2023-05-21 10:56] LABS: MANUAL DIFF FLAG NO
[2023-05-21 11:59] LABS: Basophils Absolute Auto 0.1 X10*3/uL (0.0-0.2); Basophils Percent Auto 0.8 % (0-2); Eosinophils Absolute Auto 0.3 X10*3/uL (0.0-0.4); Eosinophils Percent Auto 3.9 % (0-4); Hematocrit 37.1 % (37.0-47.0); Imm Gran Abs Auto 0.02 X10*3/uL (0.00-0.03); Imm Gran Pct Auto 0.3 % (0.0-0.4); Lymphocytes Absolute Auto 2.3 X10*3/uL (1.2-4.9); Lymphocytes Percent Auto 30.4 % (20-40); Mean Corpuscular HGB Conc 32.3 g/dl (31.0-35.0); Mean Corpuscular Hemoglobin 28.9 pg (27.0-33.0); Mean Corpuscular Volume 89.4 fL (80.0-98.0); Mean Platelet Volume 10.4 fL (9.4-12.3); Monocytes Absolute Auto 0.5 X10*3/uL (0.1-1.2); Monocytes Percent Auto 5.9 % (2-11); Neutrophils Absolute Auto 4.5 x10*3/uL (2.0-8.3); Neutrophils Percent Auto 58.7 % (45-73); Platelet Count 261 X10*3/uL (160-400); Red Blood Count 4.15 X10*6/uL (4.20-5.50); Red Cell Distribution Width 13.3 % (11.0-16.0); White Blood Count 7.7 X10*3/uL (4.8-10.8)
[2023-05-21 13:11] LABS: Alanine Aminotransferase 18 U/L (0-31); Albumin Level 3.8 g/dL (3.5-5.0); Alkaline Phosphatase 62 U/L (39-117); Anion Gap 9 (12-20); Aspartate Amino Transferase 17 U/L (5-31); Bilirubin Total 0.4 mg/dL (0.0-1.0); Blood Urea Nitrogen 10 mg/dL (9-16); Calcium 8.9 mg/dL (8.4-10.2); Carbon Dioxide 29 mmol/L (22-29); Chloride 104 mmol/L (96-108); Cholesterol 157 mg/dL (<200); Estimated Glomerular Filt Rate > 60; Glucose Random 73 mg/dL (60-115); HDL Cholesterol 46 mg/dL (>40); LDL Cholesterol Calculated 101 mg/dL (<100); Potassium 3.9 mmol/L (3.3-5.1); Sodium 138 mmol/L (135-145); Total Protein 6.8 g/dL (6.5-8.0); Triglycerides 51 mg/dL (<150)
[2023-05-21 13:16] LABS: Folate 6.4 ng/mL (> or = 4.0); Vitamin B12 706 pg/mL (200-900)
[2023-05-21 13:29] LABS: Free T4 (Free Thyroxine) 0.96 ng/dL (0.71-1.85); Thyroid Stimulating Hormone 1.05 uIU/mL (0.32-4.0)
[2023-05-21 14:03] LABS: Appearance Urine Cloudy; Color Urine Yellow; Glucose Urine UA Negative (Negative); Leukocyte Esterase Urine Negative (Negative); Nitrite Urine Negative (Negative); PH >= 9.0 (5.0-9.0); Urine Blood Negative (Negative); Urine Ketones Negative (Negative); Urine Protein Trace mg/dL (Neg-Trace)
[2023-05-21 14:06] LABS: Bacteria Urine 3+ (None Seen); Hyaline Casts Urine 0-2 /LPF (0-2); RBC Urine 0-2 /HPF (0-2); WBC Urine 0-5 /HPF (0-5)
== END 2023-05-21 10:33 | disposition home or self-care (01) ==
LOC: HO.XRAY 10:32
PROVIDERS: PCP Internal Medicine; Visit Provider Internal Medicine
DX: G47.10 Hypersomnia, unspecified (principal); E78.00 Pure hypercholesterolemia, unspecified; M54.50 Low back pain, unspecified
CPT/HCPCS: 36415; 72100; 80053; 80061; 81001; 82607; 82746; 84439; 84443; 85025

== ENCOUNTER 2023-06-17 15:04 | Outpatient (AMB) | payer OTHER, SELFPAY ==
--- NOTE | 2023-06-17 15:09 | A.OFFVIS_ITS ---
Intake Vital Signs 06/17/23 15:11 Weight 180 lb 12.465 oz BP 117/55 L Blood Pressure Location Lt brachial Position Sitting Pulse 54 Intake Visit Reasons: F/U EGD Intake Note: Patient here to f/u EGD on 04-27-23. Patient reports procedure went well. 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 Was to the extent of debilitating and limiting her to bed. Underwent in August 2022 but continues to have the sx. Currently, describes 2-3 episodes of vomiting right after waking up. Notices it more after she has had a late dinner. Assoc with pain in epigastrium which radiates to her back. Reminiscent of pancreatitis pain that occured almost 3-4 years ago at [facility]. She does tell me that she was told about GB inflammation at dewayne time but does not recall being recommended a cholecystectomy or if she was seen by a surgeon. Has also been noticing decrease appetite, gets full easily. Has lost considerable weight from that since Apr. Down multiple sizes of clothes. 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 Smokes 0.5 PPD tobacco, as well as marijuana which she started AFTER she developed N,V in Apr. 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 No fam hx of stomach ca or esophageal ca. Does not take NSAIDs on a daily basis. 04/27/23 EGD (Dr. Sparks): Normal. Path: Diagnosis A. Small bowel, biopsy: Small intestinal mucosa within normal limits; negative for celiac disease. B. Stomach, antrum, biopsy: Antral-type mucosa with moderate chronic inactive inflammation. NEgative HP. 06/17/23: Here for endoscopy results. Reports improvement of abdominal pain and vomiting even before the endoscopy was done. Now, reports has nausea occasionally, especially in the mornings. Has been coming down on her methadone dose. Weight is now stable. CT findings from February had already been reviewed with her over the phone. Essentially normal. PFSH Medical History (Updated 05/07/23 @ 15:38 by Jeanne Nesbitt MD) Unintentional weight loss History of pancreatitis Cellulitis NIYA (obstructive sleep apnea) Cough Difficulty breathing Pancreatitis Fractured coccyx Lumbar degenerative disc disease Hypertension GERD (gastroesophageal reflux disease) Tobacco abuse Polysubstance abuse Mood disorder Asthma Surgical History History of section History of wisdom tooth extraction Family History Father DDD (degenerative disc disease) CVD (cardiovascular disease) Mother CVD (cardiovascular disease) Acute pancreatitis Paternal Aunt Ovarian cancer Paternal Grandfather Colostomy in place Acute Crohn's disease Other Mental health disorder Substance use disorder Social History (Updated 05/07/23 @ 15:27 by Jeanne Nesbitt MD) Housing: Apartment Alcohol intake: never Patient Tobacco Use Status: Current everyday Tobacco user Tobacco use type: Cigarette Cigarette Packs Per Day: 0.5 Cigarettes Per Day: 12 Years Smoked: 14 yrs , 1/2 pack a day (04/2023) e-Cigarette/Vaping Use: Never Used Second Hand Smoke Exposure: Yes Current occupational status: employed Cognitive needs: No Hearing needs: No Vision needs: No Review of Systems Const All systems reviewed & are unremarkable except as noted in HPI and below Physical Exam Vital Signs: Last Vital Signs Pulse 54 06/17/23 15:11 BP 117/55 L 06/17/23 15:11 Const General: cooperative and no acute distress Orientation/consciousness: patient oriented x3 HEENT Head: Yes normal to inspection Resp Effort & Inspection: normal respiratory effort Skin General skin exam: no rashes or lesions noted Neuro General: patient oriented x3 and gait normal Extrem General: Yes normal to inspection Psych Appearance: grossly normal Assessment & Plan Assessment & Plan (1) Epigastric pain: Code(s): R10.13 - Epigastric pain (2) Vomiting: Code(s): R11.10 - Vomiting, unspecified (3) History of pancreatitis: Code(s): Z87.19 - Personal history of other diseases of the digestive system (4) Unintentional weight loss: Code(s): R63.4 - Abnormal weight loss Plan As above, patient overall doing better. Patient was reassured that workup so far is negative for recurrent pancreatitis, pancreatic cyst, PUD, gastric outlet obstruction, celiac disease, H pylori. Would recommend going down to the lowest effective methadone dose to help with nausea. In addition, she was also advised to avoid smoking, especially marijuana which may also lead to hyperemesis. Follow-up p.r.n. Coding Level of Care Code Est Pt Level 4 (17514) Diagnoses Epigastric pain R10.13 Vomiting R11.10 History of pancreatitis Z87.19 Unintentional weight loss R63.4
[2023-06-17 15:11] VITALS: BP 117/55; PULSE 54
== END 2023-06-17 16:03 | disposition home or self-care (01) ==
PROVIDERS: PCP Internal Medicine; Visit Provider Internal Medicine
DX: R10.13 Epigastric pain (principal); R11.10 Vomiting, unspecified; Z87.19 Personal history of other diseases of the digestive system; R63.4 Abnormal weight loss
CPT/HCPCS: 99214

== ENCOUNTER → 2023-06-17 15:04 | Outpatient (BNVA) | payer OTHER, SELFPAY | PROVIDERS: PCP Internal Medicine; Visit Provider Internal Medicine | DX: R10.13 Epigastric pain (principal); R11.10 Vomiting, unspecified; R63.4 Abnormal weight loss; Z87.19 Personal history of other diseases of the digestive system | CPT/HCPCS: 99212 ==

== ENCOUNTER → 2023-06-18 15:57 | Outpatient (REF) | payer OTHER, SELFPAY | LOC: HO.SL 15:57 | PROVIDERS: PCP Internal Medicine; Visit Provider Internal Medicine | DX: G47.10 Hypersomnia, unspecified (principal); R06.83 Snoring; R40.0 Somnolence | CPT/HCPCS: 95806 ==

== ENCOUNTER → 2023-06-18 16:06 | Outpatient (BNV) | payer OTHER, SELFPAY | PROVIDERS: PCP Internal Medicine; Visit Provider Internal Medicine | DX: G47.10 Hypersomnia, unspecified (principal) | CPT/HCPCS: 95806 ==

== ENCOUNTER 2023-08-07 15:44 | Outpatient (AMB) | payer OTHER, SELFPAY ==
[2023-08-07 15:48] VITALS: BP 110/72; PULSE 98; O2SAT 96; BMI 29.0
--- NOTE | 2023-08-07 15:48 | MHC.PC.OV ---
Vital Signs 08/07/23 15:48 Height 5 ft 4 in Weight 169 lb 0.2 oz BMI 29.0 BP 110/72 Blood Pressure Location Rt brachial Position Sitting Pulse 98 Pulse Source Pulse Oximeter Pulse Oximetry (%) 96 Oxygen Delivery Method Room Air Intake Visit Reasons: hypersomnia Pulmonologist/Intensivist Required: No Allergies aspirin [ASPIRIN] Allergy (Severe, Verified 08/07/23 15:49) ANAPHYLAXIS Medication List - Last Reconciled 08/07/23 by Jeanne Nesbitt MD albuterol sulfate 90 mcg/actuation (ProAir HFA) 2 puffs PO Q4-6H PRN fluticasone propion-salmeterol 115-21 mcg/actuation (Advair HFA) 2 puffs inhalation BID 30 days ipratropium-albuterol 0.5 mg-3 mg(2.5 mg base)/3 mL 3 mL inhalation Q4-6H PRN 30 days methadone 115 mg PO DAILY ondansetron 8 mg PO Q12H PRN pantoprazole 40 mg PO DAILY Tobacco use date assessed: 08/07/23 Dental Screening Dental Screen Date: 05/07/23 HPI hypersomnia HPI Details 32-year-old female smoker with a history of obstructive sleep apnea hypertension GERD asthma coming in for follow-up. Last seen in April 2023 concern about hypersomnia in sent for sleep study. Sleep study done June 2023 negative for sleep apnea. Patient also followed up with Gastroenterology had a EGD done April 2023 moderate chronic inactive inflammation advised to stop smoking, and go down to the lowest effective methadone dose. [facility] Medical History (Updated 08/07/23 @ 15:58 by Jeanne Nesbitt MD) Hypersomnia Tobacco abuse Unintentional weight loss History of pancreatitis Cellulitis NIYA (obstructive sleep apnea) Cough Difficulty breathing Pancreatitis Fractured coccyx Lumbar degenerative disc disease Hypertension GERD (gastroesophageal reflux disease) Polysubstance abuse Mood disorder Asthma Surgical History History of section History of wisdom tooth extraction Family History Father DDD (degenerative disc disease) CVD (cardiovascular disease) Mother CVD (cardiovascular disease) Acute pancreatitis Paternal Aunt Ovarian cancer Paternal Grandfather Colostomy in place Acute Crohn's disease Other Mental health disorder Substance use disorder Social History (Updated 05/07/23 @ 15:27 by Jeanne Nesbitt MD) Housing: Apartment Alcohol intake: never Patient Tobacco Use Status: Current everyday Tobacco user Tobacco use type: Cigarette Cigarette Packs Per Day: 0.5 Cigarettes Per Day: 12 Years Smoked: 14 yrs , 1/2 pack a day (04/2023) e-Cigarette/Vaping Use: Never Used Second Hand Smoke Exposure: Yes Current occupational status: employed Cognitive needs: No Hearing needs: No Vision needs: No Questionnaire PHQ-9 Over the last 2 weeks, how often have you been bothered by any of the following problems? 1. Little interest or pleasure in doing things: not at all 2. Feeling down, depressed, or hopeless: not at all 3. Trouble falling or staying asleep, or sleeping too much: not at all 4. Feeling tired or having little energy: not at all 5. Poor appetite or overeating: not at all 6. Feeling bad about yourself - or that you are a failure or have let yourself or your family down: not at all 7. Trouble concentrating on things, such as reading the newspaper or watching television: not at all 8. Moving or speaking so slowly that other people could have noticed. Or the opposite - being so fidgety or restless that you have been moving around a lot more than usual: not at all 9. Thoughts that you would be better off or of hurting yourself in some way: not at all Total score: 0 Depression Screening Interpretation: Negative Depression Screening Done: Yes 43044 - PHQ-9 Billing: Yes Source: Developed by Drs. Blake Serrano, Carli Shipman, Dayne Reilly and colleagues, with an educational kisha from [employer]. Thrive Questionnaire Date Thrive assessed: 08/07/23 AUDIT C Alcohol Use Questionnaire (AUDIT-C) 1. How often do you have a drink containing alcohol?: Never 3. How often do you have six or more drinks on one occasion?: Never Total Score: 0 DEEP-7 AMB Questionnaire DEEP-7 Date DEEP - 7 assessed: 08/07/23 Feeling nervous, anxious, or on edge: 0 = Not at all Not being able to stop or control worryin = Not at all Worrying too much about different things: 0 = Not at all Trouble relaxin = Not at all Being so restless that it is hard to sit still: 0 = Not at all Becoming easily annoyed or irritable: 0 = Not at all Feeling afraid as if something awful might happen: 0 = Not at all Total DEEP-7 score (0-4 normal; 5-9 mild; 10-14 moderate; 15-21 severe): 0 Source: Developed by Drs. Blake Serrano, Carli Shipman, Dayne Reilly and colleagues, with an educational kisha from [employer]. Physical exam (Primary Care) Vital Signs: Last Vital Signs Pulse 98 08/07/23 15:48 BP 110/72 08/07/23 15:48 Pulse Ox 96 08/07/23 15:48 Oxygen Delivery Method Room Air 08/07/23 15:48 BMI result Body Mass Index 29.0 Tobacco/Smoking Status: Tobacco use Status Tobacco use date assessed 08/07/23 08/07/23 15:49 Patient Tobacco Use Status Current everyday Tobacco 08/07/23 15:49 Tobacco use type Cigarette 08/07/23 15:49 e-Cigarette/Vaping Use Never Used 08/07/23 15:49 Depression Screening Interpretation: Negative Thrive Assessment: Date of Thrive Assessment Date Thrive assessed 01/30/23 08/07/23 15:49 Const General: alert; No acute distress Eyes Conjunctivae: conjunctivae normal Resp Auscultation: clear to auscultation bilaterally Cardio Rate: regular rate Rhythm: regular rhythm GI Inspection: Yes normal to inspection Extrem General: Yes normal to inspection and No edema Assessment and Plan Assessment & Plan (1) Tobacco abuse: Code(s): Z72.0 - Tobacco use Plan: Patient is strongly advised to stop! 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 (3) GERD (gastroesophageal reflux disease): Code(s): K21.9 - Gastro-esophageal reflux disease without esophagitis Qualifiers: Esophagitis presence: esophagitis presence not specified Qualified Code(s): K21.9 - Gastro-esophageal reflux disease without esophagitis Plan: Avoid the foods that causes that usually spicy foods, tomato products, juices, coffee, soda and foods that your sensitive to. After eating do not lie down, allow 3-4 hours before in lie down. And keep the head of bed above 30 degrees to avoid the acid from going up. Patient has seen gastroenterology and EGD has been done. Advised to stop smoking Medications: New pantoprazole 40 mg PO DAILY 30 tabs 2RF K21.9 - Gastro-esophageal reflux disease without esophagitis ondansetron 8 mg PO Q12H PRN 14 tabs 0RF nausea and vomiting K21.9 - Gastro-esophageal reflux disease without esophagitis Discontinued omeprazole Discontinued Reason: Doctor's Order 20 mg PO DAILY 90 caps 1RF K21.9 - Gastro-esophageal reflux disease without esophagitis Coding Level of Care Code Est Pt Level 4 (13068) Diagnoses Tobacco abuse Z72.0 History of drug use F19.91 Gastroesophageal reflux disease, unspecified whether esophagitis present K21.9 Esophagitis presence: esophagitis presence not specified
== END 2023-08-07 16:14 | disposition home or self-care (01) ==
PROVIDERS: PCP Internal Medicine; Visit Provider Internal Medicine
DX: K21.9 Gastro-esophageal reflux disease without esophagitis (principal); F19.91 Other psychoactive substance use, unspecified, in remission; Z72.0 Tobacco use
CPT/HCPCS: 99214

== ENCOUNTER 2023-08-12 14:00 | Outpatient (RCR) | payer OTHER, SELFPAY ==
--- NOTE | 2023-07-15 17:37 | MHC.PT.EP ---
[facility] [place] Office [place] Office [place] Office [address] Loraine Hernandez [address] [phone] F: [phone] F: [phone] F: [phone] F: [phone] Physical Therapy Plan of Care Date of Evaluation: 07/15/23 Date of Surgery: N/A Diagnosis: low back pain (RL) Assessment: pt is a 32 y/o female presenting to physical therapy w/ referring diagnosis of low back pain. pt does have recent xray imaging (+) for trace L5-S1 retrolisthesis. Her signs and symptoms seem consistent w/ poor core and pelvic stability. Impairments include pain, decreased range of motion, decreased strength, impaired functional mobility, impaired postural awareness, and altered ambulation mechanics. pt is a good candidate for skilled PT due to age, potential remediation of impairments, typical disease/condition progression and prognosis, comorbidities, and motivation. pt would benefit from skilled PT intervention to provide a tailored strengthening and stretching exercise program, functional training, gait training, postural re-training, neuromuscular re-education, modalities as needed for pain, equipment safety demonstration. Frequency and Duration: The patient will be seen 2x/wk for 5 wks Short Term Goals: pt will be I w/ HEP to promote self-management of condition. pt will demo proper sitting posture w/ lumbar roll to promote netural spine w/ seated ADLs. pt will improve lumbar flexion AROM to 100% to promote ease in lower body dressing. Electrical Checkout Mechanic Goals: pt will demo neutral spine in standing w/o verbal cueing to promote improved tolerance for IADLs including housekeeping. pt will demo proper lifting mechanics w/o verbal cueing <50# to promote return to functional lifting. pt will report a statistically significant improvement in self-reported outcome measure, LEFI, to promote return to PLOF. Treatment Plan: Modalities to reduce pain, spasms and effusion. Manual therapy to restore motion and function. Therapeutic exercise to improve strength and flexibility. Neuromuscular re-education for posture and balance. Therapeutic activities to return to functional activities of daily living. Electronically signed by: Prabha Fay PT, DPT Please sign and return to therapist. Thank you for your referral.
--- NOTE | 2023-09-03 11:47 | MHC.PT.DC ---
[facility] [place] Office [place] Office [place] Office [address] Loraine Hernandez [address] [facility] [phone] F: [phone] F: [phone] F: [phone] F: [phone] Physical Therapy Discharge Report Diagnosis: low back pain (RL) Date of Surgery: N/A Date of Evaluation: 07/15/23 Date of Discharge: 09/03/23 Treatments to Date: 7 Cancellations to Date: 3 No Shows to Date: 3 Discharge Status: Visit Non-compliance Discharge Summary: The patient overall did not report any significant change in her low back pain with physical therapy intervention. She had poor tolerance of any standing exercises. She overall seemed depressed and not motivated to participate in PT which was a barrier to intervention. She cancelled and no showed her last few appointments. She is discharged from this physical therapy plan of care for non-compliance. Electronically signed by: Prabha Fay PT, DPT Please sign and return to therapist. Thank you for your referral.
== END 2023-09-03 11:47 | disposition home or self-care (01) ==
LOC: HO.PT 14:00
PROVIDERS: PCP Internal Medicine; Visit Provider Internal Medicine
DX: M54.50 Low back pain, unspecified (principal)
CPT/HCPCS: 97110; 97112; 97140; 97162